=== PATIENT | female | born 1955 | race African-American/Black ===

== ENCOUNTER 2023-08-09 20:14 | Emergency (ER) | payer MEDICARE, MEDICAID, SELFPAY ==
[2023-08-09] VITALS (10 sets, daily range): BP systolic 103–145; BP diastolic 60–71; PULSE 97–115; RESP 14–19; TEMP 37.3; O2SAT 94–100
--- NOTE | ~2023-08-09 | CT_ITS ---
EXAMINATION: CT abdomen pelvis w con DATE: 08/09/2023 22:06 INDICATION: Abdominal distention, constipation. Last bowel movement one week ago. TECHNIQUE: Computed tomography (CT) of the abdomen and pelvis was performed with 100 cc Omnipaque 350 intravenous contrast. Automated exposure control and iterative reconstruction technique were employe d. Exam dose: 218.50 mGy-cm total exam DLP. COMPARISON: None. FINDINGS: There is minimal dependent atelectasis in the right lower lobe. Heart size is borderline. No pericardial or pleural effusion. 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 The gallbladder is prominently distended. There is intrahepatic and extrahepatic bile duct dilatatio n; the common bile duct measures up to approximately 10 mm. No hepatic, splenic, pancreatic space-occupying mass lesion is evident. The pancreatic duct is dilate d, measuring up to 4.8 mm diameter. Consider MRCP for further evaluation as clinically appropriate. There is a very large amount of feces throughout the rectum and colon, the rectum measuring up to 9 c m transversely. There are multiple fluid levels within nondilated small bowel. No bowel wall thickening or nonenhance ment of bowel wall is evident. No pneumatosis is detected. No intraperitoneal free air or portal veno us gas is detected There is a small locule of air apparently at the anterior nondependent aspect of the right side of th e urinary bladder. No bladder wall thickening is noted. There is extensive calcification of the abdominal aorta but no aneurysm. Prominent calcification of t he proximal renal arteries. No intraperitoneal or retroperitoneal or pelvic mass lesion or adenopathy or ascites is noted. The ut erus appears to be surgically absent. No suspicious osteolytic or osteoblastic lesions are noted. IMPRESSION: Very prominent amount of material throughout the rectum and colon consistent with clinic al presentation of constipation. Distended gallbladder and dilated common bile duct, intrahepatic ducts and pancreatic duct similar co nsider MRCP for further evaluation Reviewed, dictated and finalized at [facility]. Reviewed, dictated and finalized at location A. EGNATOR HELPER IMPRESSION: Very prominent amount of material throughout the rectum and colon consistent with clinical presentation of constipation. Distended gallbladder and dilated common bile duct, intrahepatic ducts and panc reatic duct similar consider MRCP for further evaluation
--- NOTE | 2023-08-09 20:44 | ED.GENADULT ---
HPI - General Adult General Chief complaint: Unspecified <Daina Sidhu MD - Last Filed: 08/09/23 21:53> Stated complaint: constipation <Daina Sidhu MD - Last Filed: 08/09/23 21:53> Time Seen by Provider: 08/09/23 20:43 <Daina Sidhu MD - Last Filed: 08/09/23 21:53> Source: patient <Daina Sidhu MD - Last Filed: 08/09/23 21:53> Mode of arrival: EMS <Daina Sidhu MD - Last Filed: 08/09/23 21:53> Limitations: no limitations <Daina Sidhu MD - Last Filed: 08/09/23 21:53> History of Present Illness HPI narrative: 68 years old female came from home by ambulance complaining of last bowel movement 7 days ago, unable to have bowel movements since. Associated with nausea. She denies any fever, chills, vomiting or having similar symptoms. Reports some abdominal discomfort. Patient lives alone, history of , hypertension, hyperlipidemia, does not smoke or drink or use drugs <Daina Sidhu MD - Last Filed: 08/09/23 21:53> Related Data Allergies/adverse reactions: Allergies Allergy/AdvReac Type Severity Reaction Status Date / Time No Known Allergies Allergy Verified 08/09/23 21:18 <Daina Sidhu MD - Last Filed: 08/09/23 21:53> Review of Systems Review of Systems: All systems reviewed & are unremarkable except as noted in HPI and below <Daina Sidhu MD - Last Filed: 08/09/23 21:53> Exam Narrative: General appearance: Well-developed, well-nourished Skin: Normal color Head: Normocephalic, nontraumatic Eyes: Clear conjunctiva ENT: Oropharynx normal, ears normal, nose normal Neck: Supple, nontender Chest and respiratory: Airway patent, no respiratory distress, no accessory muscle use Heart: Regular rate/rhythm Abdomen: positive guarding, diffuse tenderness, positive distention Vascular: Normal peripheral pulses, normal capillary refill. Neurologic: Alert and oriented ?3, NUT ORCHARDIST is normal as tested, no gross motor deficit <Daina Sidhu MD - Last Filed: 08/09/23 21:53> Course Reevaluation(s) Reevaluation #1: Patient care was signed out with CT abdomen pelvis pending. CT scan does show significant constipation. Patient has been attempting to treat her constipation. CT also showed some gallbladder distension, patient has normal T bili AST ALT and alk-phos. Patient was updated of the results of her CT scan and for treatment at home. Patient reports that she does feel improved. Patient had a large bowel movement while in the ED. patient states he does not drink very much water. Patient was encouraged to increase her water intake. <Nathaniel Dan MD - Last Filed: 08/10/23 05:07> Consultations Consultation #1: DR. DAN PATIENT SIGNED OUT AT SHIFT CHANGE, WAITING FOR CT SCAN OF THE ABDOMEN AND PELVIS WITH IV CONTRAST,. <Daina Siduh MD - Last Filed: 08/09/23 21:53> Date: 08/09/23 <Daina Sidhu MD - Last Filed: 08/09/23 21:53> Time: 21:53 <Daina Sidhu MD - Last Filed: 08/09/23 21:53> Vital Signs Vital signs: Vital Signs Temperature 99.2 F 08/09/23 20:19 Pulse Rate 115 H 08/09/23 20:19 Respiratory Rate 19 08/09/23 20:19 Blood Pressure 103/67 08/09/23 20:19 Pulse Oximetry 100 08/09/23 20:19 Oxygen Delivery Room Air 08/09/23 20:19 Temperature 99.2 F 08/09/23 20:19 Pulse Rate 100 08/09/23 22:09 Respiratory Rate 14 08/09/23 22:09 Blood Pressure 131/71 08/09/23 22:31 Pulse Oximetry 94 08/09/23 22:11 Oxygen Delivery Room Air 08/09/23 20:19 <Daina Sidhu MD - Last Filed: 08/09/23 21:53> Vital Signs Temperature 99.2 F 08/09/23 20:19 Pulse Rate 115 H 1
[2023-08-09] MEDS: ONDANSETRON INJ 4 MG/2 ML VIAL IV PUSH (21:19)
[2023-08-09] MEDS: HYDROmorphone HCL INJ (*CRX) 1 MG/ML SYR 0.5 MG IV PUSH (21:21)
[2023-08-09] MEDS: SODIUM CHLORIDE 0.9% IV 1,000 ML 999 ML IV CONT (21:21)
[2023-08-09 21:32] LABS: Basophils Percent Auto 0.2 % (0.2-1.2); Eosinophils Percent Auto 0.1 % (0-4.4); Hematocrit 35.1 % (37.0-47.0); Hemoglobin 10.8 g/dL (12.0-15.0); Immature Granulocyte Absolute 0.03 K/mm3 (0.00-0.031); Immature Granulocyte Percent A 0.3 % (0-0.5); Lymphocytes Absolute Auto 1.34 K/mm3 (0.9-3.2); Lymphocytes Percent Auto 14.2 % (18.3-44.2); Mean Corpuscular HGB Conc 30.8 g/dl (32-36); Mean Corpuscular Hemoglobin 25.6 pg (26-34); Mean Corpuscular Volume 83.2 fl (80-100); Mean Platelet Volume 8.9 fl (7.4-10.4); Monocytes Absolute Auto 0.5 K/mm3 (0.1-0.6); Monocytes Percent Auto 4.9 % (2.6-8.5); Neutrophils Absolute Auto 7.6 K/mm3 (1.3-6.7); Neutrophils Percent Auto 80.3 % (45.5-73.1); Platelet Count Result 279 k/mm3 (150-375); Red Blood Count 4.22 M/mm3 (4.2-5.4); Red Cell Distribution Width 13.7 % (11.5-14.5); White Blood Count 9.4 K/mm3 (4.5-10.0)
[2023-08-09 21:42] LABS: Alanine Aminotransferase 27 U/L (6-35); Albumin Level 4.4 g/dL (3.5-5.1); Alkaline Phosphatase 99 U/L (38-126); Anion Gap 7 mmol/L (8-16); Aspartate Amino Transferase 33 U/L (14-36); Bilirubin,Total 0.4 mg/dL (0.2-1.3); Blood Urea Nitrogen 12 mg/dL (7-17); Calcium 8.8 mg/dL (8.4-10.2); Carbon Dioxide 29 mmol/L (22-30); Chloride 103 mmol/L (98-107); Estimated CRCL calculation 76 ml/min; Estimated Glomerular Filt Rate > 60; Glucose 117 mg/dL (65-110); Lipase 29 U/L (23-300); Potassium 4.4 mmol/L (3.4-5.0); Sodium 139 mmol/L (137-145)
[2023-08-09 21:44] LABS: Lactic Acid Reflex 1.3 mmol/L (0.7-2.0); Prothrombin Time 13.9 Seconds (11.1-14.7)
[2023-08-09 21:45] LABS: Partial Thromboplastin Time 35.5 SECONDS (22.3-36.8)
--- NOTE | 2023-08-09 23:20 | PC.NURSE ---
Unable to obtain urine sample, patient had use the restroom for a bowel movement without specimen cup.
== END 2023-08-09 23:46 | disposition home or self-care (01) ==
PROVIDERS: Emergency Provider Emergency Medicine
DX: R10.9 Unspecified abdominal pain (principal); I10 Essential (primary) hypertension; E78.5 Hyperlipidemia, unspecified
CPT/HCPCS: 36415; 74177; 80053; 83605; 83690; 85025; 85610; 85730; 96361; 96374; 96375; 99284; J1170; J2405; J7030; Q9967

== ENCOUNTER 2023-12-04 14:06 | Emergency (ER) | payer MEDICARE, MEDICAID, SELFPAY ==
--- NOTE | ~2023-12-04 | US_ITS ---
EXAMINATION: US venous doppler [facility] DATE: 12/04/2023 15:25 INDICATION: Left lower limb pain. TECHNIQUE: Grayscale ultrasound images without and with compression and Doppler ultrasound images of the left lower extremity veins were obtained. COMPARISON: None. FINDINGS: The visualized portions of left common femoral vein, profunda (deep) femoral vein, femoral vein, popl iteal vein, peroneal veins, posterior tibial veins, and greater saphenous vein outflow are patent. IMPRESSION: 1. No deep venous thrombosis. Reviewed, dictated and finalized at location E.
[2023-12-04 14:13] VITALS: BP 103/62; PULSE 100; RESP 16; TEMP 36.6; O2SAT 99
--- NOTE | 2023-12-04 14:43 | ED_ITS ---
HPI - Extremity Problem General Chief complaint: Extremity Problem,Nontraumatic Stated complaint: L leg pain Time Seen by Provider: 12/04/23 14:20 History of Present Illness HPI Narrative: 68-year-old female presenting to the emergency department for evaluation of left leg pain. Patient has had a suspected lipoma or cyst on her leg for many years but states that it has been increasing in size and patient reports increased left leg pain. Patient denies any prior history of PE or DVT. Patient denies any recent falls or injuries. Related Data Allergies Allergy/AdvReac Type Severity Reaction Status Date / Time No Known Allergies Allergy Verified 12/04/23 14:23 Review of Systems Review of Systems: All systems reviewed & are unremarkable except as noted in HPI and below Exam Narrative: APPEARANCE: Well appearing, no pain, no distress, well-nourished. HEAD: normocephalic, atraumatic. EYES: PERRLA/EOMI, conjunctivae clear. NOSE: Normal no drainage RESPIRATORY: Airway patent, respirations nonlabored. Clear to auscultation bilaterally, no rales, rhonchi, wheezing. CARDIOVASCULAR: Regular rate and rhythm without murmurs rubs or gallops. ABDOMINAL: Soft, nontender, nondistended, normal bowel sounds MUSCULOSKELETAL: Moves all extremities. Strength/ROM intact, No edema, No calf tenderness. Palpable cyst on left medial thigh with no overlying erythema, no fluctuance, no induration NEURO: Alert. Cranial nerves II through XII intact. Grossly intact SKIN: Warm, dry. Normal Color. No concern for underlying abscess or cellulitis Course Vital Signs Vital signs: Vital Signs Temperature 97.8 F 12/04/23 14:13 Pulse Rate 100 12/04/23 14:13 Respiratory Rate 16 12/04/23 14:13 Blood Pressure 103/62 12/04/23 14:13 Pulse Oximetry 99 12/04/23 14:13 Oxygen Delivery Room Air 12/04/23 14:13 Temperature 97.8 F 12/04/23 14:13 Pulse Rate 100 12/04/23 14:13 Respiratory Rate 16 12/04/23 14:13 Blood Pressure 103/62 12/04/23 14:13 Pulse Oximetry 99 12/04/23 14:13 Oxygen Delivery Room Air 12/04/23 14:13 MDM - Extremity (Nontraumatic) MDM Narrative Medical decision making narrative: 68-year-old female presenting to the emergency department for evaluation for chronic left leg pain that is worsening. Ultrasound was negative for DVT. No evidence of cellulitis, no edema, patient does have a suspected lipoma that she states has been increasing in discomfort. Patient was encouraged close follow- up with her primary care physician. All questions were addressed. Differential Diagnosis Differential diagnosis: Likely cellulitis, superficial thrombophlebitis, lower extremity edema and deep vein thrombosis of lower extremity Discharge Plan Discharge Clinical Impression: Chronic leg pain Patient Disposition: Home, Self-Care Condition: Stable Instructions: Antibiotic Form Additional Instructions: Tylenol and ibuprofen for pain control. Have close follow-up with your primary care physician for additional outpatient testing. If you have any worsening symptoms then please call or return to the emergency department. Follow-up/Referrals: UNKNOWN,DOCTOR [Primary Care Provider] -
== END 2023-12-04 15:38 | disposition home or self-care (01) ==
PROVIDERS: Emergency Provider Emergency Medicine
DX: M79.605 Pain in left leg (principal); G89.29 Other chronic pain
CPT/HCPCS: 93971; 99284

== ENCOUNTER 2025-05-31 21:36 | Emergency (ER) | payer MEDICARE, MEDICAID, SELFPAY ==
--- NOTE | ~2025-05-31 | XR_ITS ---
XR chest 2V HOSTORY: cp COMPARISON:[ None] FINDINGS: Frontal and lateral views of the chest were obtained. The lungs are clear. The heart size is normal in size. Pulmonary vasculature is unremarkable. Osseous structures are intact. IMPRESSION: No acute lung findings.] [ ] Reviewed, dictated and finalized at location S.
--- NOTE | 2025-05-31 21:38 | ECG_ITS ---
Test Date: 2025-05-31 21:43:56 Measurements Intervals [place] Rate: 86 P: 72 [place]: 141 QRS: 28 QRSD: 75 T: 29 QT: 350 QTc: 420 Interpretive Statements SINUS RHYTHM POSSIBLE LEFT ATRIAL ENLARGEMENT BORDERLINE T WAVE ABNORMALITY- INFERIOR LEADS BASELINE ARTIFACT- I, II, AVR, AVL, AVF BORDERLINE ECG No previous ECG available for comparison Electronically Signed On 06-01-2025 05:32:10 CDT by Don Martin D.O.
--- OUTSIDE RECORDS SUMMARY | 2025-05-31 21:39 | XMS_ITS | Clinical Summary ---
Author Organization [facility] [place] Address [address] [place] [id number] Care Team Providers Care Mine Deputy Name Role Phone Luis Blount MD Primary Care Provider [phone] Allergies No known active allergies Social History Tobacco Use Types Packs/Day Years Used Date Smoking Tobacco: Never Assessed Personal Safety Answer Date Recorded Getting School Help Needed Not on file 10/13 Comments Unknown Sex and Gender Information Value Date Recorded Sex Assigned at Not on file Legal Sex Female 5:37 PM MANAGER MASS Gender Identity Not on file Sexual Orientation Not on file Last Filed Vital Signs Vital Sign Reading Time Taken Comments Blood Pressure 124/76 09/13/2021 3:50 AM MANAGER MASS Pulse 105 09/13/2021 3:50 AM MANAGER MASS Temperature 36.5 C (97.7 F) 09/13/2021 2:34 AM MANAGER MASS Respiratory Rate 20 09/13/2021 3:50 AM MANAGER MASS Oxygen Saturation 100% 09/13/2021 3:50 AM MANAGER MASS Inhaled Oxygen Concentration - - Weight 54.4 kg (120 lb) 09/13/2021 2:34 AM MANAGER MASS Height 162.6 cm (5' 4) 10/31/2019 9:28 PM CDT Body Mass Index 20.6 10/31/2019 9:28 PM CDT Plan of Treatment Not on file Insurance [facility] MEDICARE ADVANTAGE Care Teams Mine Deputy Relationship Specialty Start Date End Date Luis Blount MD PCP - General 10/31/19
[2025-05-31 21:41] VITALS: BP 126/64; PULSE 88; RESP 20; TEMP 36.8; O2SAT 100
[2025-05-31 22:01] LABS: Hematocrit 30.7 % (37.0-47.0); Hemoglobin 9.1 g/dL (12.0-15.0); Immature Granulocyte Percent A 0.2 % (0-0.5); Lymphocytes Absolute Auto 2.47 K/mm3 (0.9-3.2); Mean Corpuscular HGB Conc 29.6 g/dl (32-36); Mean Corpuscular Hemoglobin 21.1 pg (26-34); Mean Corpuscular Volume 71.2 fl (80-100); Nucleated Red Blood Cells Absolute Auto 0.000 K/mm3 (0.0-0.012); Nucleated Red Blood Cells Perc 0.0 % (0.0-0.2); Platelet Count Result 282 k/mm3 (150-375); Red Blood Count 4.31 M/mm3 (4.2-5.4); White Blood Count 5.5 K/mm3 (4.5-10.0)
[2025-05-31 22:15] LABS: Alanine Aminotransferase 16 U/L (6-35); Albumin Level 4.5 g/dL (3.5-5.1); Alkaline Phosphatase 99 U/L (38-126); Anion Gap 9 mmol/L (4-12); Aspartate Amino Transferase 28 U/L (14-36); Bilirubin,Total 0.3 mg/dL (0.2-1.3); Blood Urea Nitrogen 17 mg/dL (7-17); Calcium 9.0 mg/dL (8.4-10.2); Carbon Dioxide 28 mmol/L (22-30); Chloride 99 mmol/L (98-107); Estimated CRCL calculation 48 ml/min; Estimated Glomerular Filt Rate > 60; Glucose 139 mg/dL (65-110); INR 1.2; Lipase 46 U/L (23-300); Potassium 3.8 mmol/L (3.4-5.0); Prothrombin Time 15.3 Seconds (11.1-14.7); Sodium 136 mmol/L (137-145); Total Protein 8.0 g/dL (6.3-8.2)
[2025-05-31 22:16] LABS: Partial Thromboplastin Time 32.0 Seconds (22.3-36.8)
[2025-05-31 22:21] LABS: Hypochromasia 1+
[2025-05-31 22:22] LABS: Anisocytosis 2+; Band Neutrophils Percent 0 % (0-6); Microcytosis 1+ (NORMAL); Schistocytes None Seen
[2025-05-31 22:26] LABS: Troponin I < 0.012 ng/mL (0.000-0.034)
--- NOTE | 2025-06-01 01:21 | ECG_ITS ---
Test Date: 2025-06-01 01:28:17 Measurements Intervals [place] Rate: 74 P: 84 [place]: 144 QRS: 59 QRSD: 78 T: 51 QT: 408 QTc: 455 Interpretive Statements SINUS RHYTHM POSSIBLE LEFT ATRIAL ENLARGEMENT CANNOT R/O SEPTAL INFARCT, AGE INDETERMINATE BASELINE ARTIFACT- I, II, III, AVR, AVL, AVF ABNORMAL ECG Compared to ECG 05/31/2025 21:43:56 No significant changes Electronically Signed On 06-01-2025 05:37:13 CDT by Don Martin D.O.
[2025-06-01 01:30] VITALS: PULSE 75; RESP 14; O2SAT 100
[2025-06-01 01:32] VITALS: BP 146/92; PULSE 82; RESP 20; O2SAT 100
[2025-06-01 01:38] VITALS: O2SAT 100
[2025-06-01 02:10] LABS: Troponin I < 0.012 ng/mL (0.000-0.034)
--- NOTE | 2025-06-01 03:45 | ECG_ITS ---
Test Date: 2025-06-01 03:48:16 Measurements Intervals [place] Rate: 74 P: 81 [place]: 145 QRS: 67 QRSD: 78 T: 62 QT: 418 QTc: 467 Interpretive Statements SINUS RHYTHM POSSIBLE LEFT ATRIAL ENLARGEMENT CANNOT R/O SEPTAL INFARCT, AGE INDETERMINATE ABNORMAL ECG Compared to ECG 06/01/2025 01:28:17 NO SIGNIFICANT CHANGE Electronically Signed On 06-01-2025 05:39:00 CDT by Don Martin D.O.
--- NOTE | 2025-06-01 04:25 | ED.GENADULT ---
HPI - General Adult General Chief complaint: Chest Pain Stated complaint: cp Time Seen by Provider: 06/01/25 04:15 History of Present Illness HPI narrative: This is a 70-year-old female with history of hypertension diabetes on cholesterol presenting for chest pain. Patient says she was cooking dinner around 6 when she developed an achy pain in her chest. It was nonradiating, moderate intensity and resolved on its own by time she got to the emergency room. She has had pain like this many times over the last several years but has not required hospitalization. She has been referred to a liaison inspection laboratory assistant but is going to see them later this month. The pain is not exertional, was not associated with diaphoresis vomiting or radiation. She does not have any fevers productive cough shortness of breath or lower extremity edema. Patient is currently pain-free. Related Data Allergies Allergy/AdvReac Type Severity Reaction Status Date / Time No Known Allergies Allergy Verified 12/04/23 14:23 Exam Narrative: APPEARANCE: No apparent distress. Head: atraumatic. EYES: EOMI, NOSE: Atraumatic NECK: Trachea midline RESPIRATORY: No increased rate of breathing clear to auscultation CARDIOVASCULAR: RRR, no peripheral edema ABDOMINAL: Distended but soft with no tenderness guarding rebound -patient says is normal MUSCULOSKELETAl: No obvious deformities NEURO: Alert. Moving 4/4 extremities SKIN:: Warm, dry. Normal color PSYCHIATRIC: Normal affect Course Vital Signs Vital signs: Vital Signs Temperature 98.2 F 05/31/25 21:41 Pulse Rate 88 05/31/25 21:41 Respiratory Rate 20 05/31/25 21:41 Blood Pressure 126/64 05/31/25 21:41 Pulse Oximetry 100 05/31/25 21:41 Oxygen Delivery Room Air 05/31/25 21:41 Temperature 98.2 F 05/31/25 21:41 Pulse Rate 82 06/01/25 01:32 Respiratory Rate 20 06/01/25 01:32 Blood Pressure 146/92 H 06/01/25 01:32 Pulse Oximetry 100 06/01/25 01:38 Oxygen Delivery Room Air 06/01/25 01:38 Medical Decision Making [facility] Narrative Medical decision making narrative: -Course: 70-year-old female presenting with an episode of chest pain. This pain appears to be chronic as she has been having for several years. Troponins were negative x2. Chest x-ray with no acute findings. EKG without ischemic changes. Patient has close follow-up with liaison inspection laboratory assistant later this month. She does not have any current chest pain symptoms. Patient will be discharged follow-up with her liaison inspection laboratory assistant. Given return precautions for worsening chest pain or any new symptoms. -DDX includes but is not limited to: ACS, GERD, pneumonia, pneumothorax, dissection, PE -Co-morbidities complicating care: Hypertension diabetes high cholesterol Vital Signs Vital Signs: Vital Signs Temperature 98.2 F 05/31/25 21:41 Pulse Rate 88 05/31/25 21:41 Respiratory Rate 20 05/31/25 21:41 Blood Pressure 126/64 05/31/25 21:41 Pulse Oximetry 100 05/31/25 21:41 Oxygen Delivery Room Air 05/31/25 21:41 Temperature 98.2 F 05/31/25 21:41 Pulse Rate 82 06/01/25 01:32 Respiratory Rate 20 06/01/25 01:32 Blood Pressure 146/92 H 06/01/25 01:32 Pulse Oximetry 100 06/01/25 01:38 Oxygen Delivery Room Air 06/01/25 01:38 Lab Data 05/31/25 21:53 05/31/25 21:53 Labs: Lab Results 05/31/25 06/01/25 Range/Units 21:53 01:42 WBC 5.5 (4.5-10.0) K/mm3 RBC 4.31 (4.2-5.4) M/mm3 Hgb 9.1 L (12.0-15.0) g/dL Hct 30.7 L (37.0-47.0) % MCV 71.2 L (80-100) fl MCH 21.1 L (26-34) pg MCHC 29.6 L (32-36) g/dl RDW 15.6 H (11.5-14.5) % Plt Count 282 (150-375) k/mm3 MPV 8.1 (7.4-10.4) fl Immature Gran % (Auto) 0.2 (0-0.5) % Neut % (Auto) 46.1 (45.5-73.1) % Lymph % (Auto) 44.9 H (18.3-44.2) % [place] % (Auto) 7.3 (2.6-8.5) % Eos % (Auto) 1.1 (0-4.4) % Baso % (Auto) 0.4 (0.2-1.2) % Lymph # (Auto) 2.47 (0.9-3.2) K/mm3 [place] # (Auto) 0.4 (0.1-0.6) K/mm3 Eos # (Auto) 0.1 (0-0.3) K/mm3 Baso # (Auto) 0.0 (0.0-0.1) K/mm3 Abs Immat Gran (auto) 0.01 (0.00-0.031) K/mm3 Absolute Neuts (auto) 2.5 (1.3-6.7) K/mm3 Absolute Nucleated RBC 0.000 (0.0-0.012) K/mm3 Band Neutrophils % 0 (0-6) % Nucleated RBC % 0.0 (0.0-0.2) % Platelet Estimate Adequate (Adequate) Hypochromasia 1+ Anisocytosis 2+ Microcytosis 1+ (NORMAL) Schistocytes None seen PT 15.3 H (11.1-14.7) Seconds INR 1.2 APTT 32.0 (22.3-36.8) Seconds Sodium 136 L (137-145) mmol/L Potassium 3.8 (3.4-5.0) mmol/L Chloride 99 (98-107) mmol/L Carbon Dioxide 28 (22-30) mmol/L Anion Gap 9 (4-12) mmol/L BUN 17 (7-17) mg/dL Creatinine 0.76 (0.7-1.0) mg/dL Estim Creat Clear Calc 48 ml/min Estimated GFR > 60 (59 - ) Glucose 139 H (65-110) mg/dL Calcium 9.0 (8.4-10.2) mg/dL Total Bilirubin 0.3 (0.2-1.3) mg/dL AST 28 (14-36) U/L ALT 16 (6-35) U/L Alkaline Phosphatase 99 (38-126) U/L Troponin I < 0.012 < 0.012 (0.000-0.034) ng/mL Total Protein 8.0 (6.3-8.2) g/dL Albumin 4.5 (3.5-5.1) g/dL Lipase 46 (23-300) U/L Discharge Plan Discharge Clinical Impression: Chest pain Patient Disposition: Home Condition: Stable Instructions: Antibiotic Form, Chest Pain (DC) Additional Instructions: You were seen in the emergency department for chest pain. Your workup here was reassuring. Please follow-up with your liaison inspection laboratory assistant later this month. If you develop any new or worsening symptoms please for the evaluation. Patient Language: Slovenian Follow-up/Referrals: UNKNOWN,DOCTOR [Primary Care Provider] Quality HEART score for chest pain patients History: slightly suspicious ECG: normal Age: > or = to 65 years Risk factors: 1 or 2 risk factors Troponin: < or = to 1x normal limit Heart score: 3
[2025-06-01 04:47] VITALS: BP 112/64; PULSE 82; RESP 12; O2SAT 100
== END 2025-06-01 04:50 | disposition home or self-care (01) ==
PROVIDERS: Emergency Provider Emergency Medicine
DX: R07.9 Chest pain, unspecified (principal); R94.31 Abnormal electrocardiogram [ECG] [EKG]
CPT/HCPCS: 36415; 71046; 80053; 83690; 84484; 85025; 85610; 85730; 93005; 99284